=== PATIENT | female | born 1935 ===

== ENCOUNTER 2018-06-11 06:34 | Day surgery (SDC) | payer MEDICARE ==
[2018-06-11 06:59] VITALS: BMI 29.2
[2018-06-11 07:14] VITALS: RESP 18
[2018-06-11] MEDS ORDERED: Lactated Ringer's 1,000 ML IV ONE (07:25)
[2018-06-11] MEDS ORDERED: Propofol 10 mg/ml Inj (20 ML) ONE ×2 (07:42→08:54)
[2018-06-11] MEDS ORDERED: Sevoflurane - Inhalation Anesthetic Liq (250 ml) ONE ×2 (07:43→08:54)
[2018-06-11] MEDS ORDERED: Phenylephrine 10 mg/ml Inj ONE ×2 (07:45→08:54)
[2018-06-11] MEDS ORDERED: Etomidate 20 mg/10ml Inj IV ONE ×2 (08:19→08:54)
[2018-06-11] MEDS ORDERED: Lidocaine 2% Jelly (Uro-Jet) ONE (08:33)
[2018-06-11] MEDS ORDERED: cefTRIAXone (Rocephin) 1 gm Inj ONE (08:33)
[2018-06-11] MEDS ORDERED: ePHEDrine 50 mg/ml Inj ONE (09:24)
[2018-06-11 12:57] VITALS: BP 143/67; PULSE 69; TEMP 97.8; O2SAT 99
--- NOTE | 2018-06-11 21:04 | OP ---
Copied To: Naheed Gomez MD Attending MD: Naheed Gomez MD PROCEDURE DATE: 06/11/2018 PREOPERATIVE DIAGNOSIS: Overactive bladder with urinary urgency and urge incontinence. POSTOPERATIVE DIAGNOSIS: Overactive bladder with urinary urgency and urge incontinence. PROCEDURE: Intravesical instillation of Botox. DESCRIPTION OF PROCEDURE: The patient was placed on the operating room table in dorsal lithotomy position, given general anesthesia. The area of the groin was prepped and draped at this time using a cystoscope, rigid, got into the bladder. We identified right and left ureteral orifices; and at this time, I injected 0.5 mL of Botox in 3 rows of 7 installations proximal to the ureteral orifices on both sides. They were trying to maintain about 1 cm separation around each injection site. Minimal bleeding was noted from the injections but, there was good distribution, good placement. Once all the product was instilled which was 100 units, the patient then had the instrumentation removed, and she was taken from the operating room in good condition. Naheed Gomez MD
== END 2018-06-11 13:25 | disposition home or self-care (01) ==
LOC: H.OPSURG 06:34
PROVIDERS: ATTEND Urology
DX: N32.81 Overactive bladder (principal); E11.9 Type 2 diabetes mellitus without complications; E78.5 Hyperlipidemia, unspecified; I10 Essential (primary) hypertension
CPT/HCPCS: 52287; 82948; J0588; J0696; J2001; J2370; J2704; J7120